=== PATIENT | male | born 1960 | race Caucasian/White ===

== ENCOUNTER 2020-05-14 06:18 | Day surgery (SDC) | payer OTHER ==
[~2020-05-14] VITALS: Ht 167.6 cm; Wt 65.8 kg
[2020-05-14 07:27] VITALS: BP 127/84
[2020-05-14 17:11] VITALS: BP 127/85
--- NOTE | 2020-05-14 18:35 | NUR ---
P.T. NOTES P.T. EVAL COMPLETED; REFER TO EVAL FOR DETAILS.
== END 2020-05-14 17:00 | disposition home or self-care (01) ==
LOC: DS 06:18 → OR 13:00 → DS 13:00 → OR 05-15 07:30
PROVIDERS: ATTEND Student in an Organized Health Care Education/Training Program
DX: M17.11 Unilateral primary osteoarthritis, right knee (principal); Z96.652 Presence of left artificial knee joint; Z79.82 Long term (current) use of aspirin
CPT/HCPCS: C1713; C1776; J0131; J0690; J1170; J1885; J2175; J2250; J2405; J2704; J3010; J3490; J7030; J7120